=== PATIENT | male | born 1990 | race Caucasian/White ===

== ENCOUNTER 2017-01-11 15:03 | Emergency (ER) | payer OTHER ==
[2017-01-11 15:14] VITALS: RESP 18
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
[2017-01-11] MEDS ORDERED: LET GEL TOPICAL 1 EA SYR TP ONE (16:11)
[2017-01-11 16:18] VITALS: BP 134/67; PULSE 82; TEMP 98.2; O2SAT 96
== END 2017-01-11 16:41 | disposition home or self-care (01) ==
DX: S42.101A Fracture of unspecified part of scapula, right shoulder, initial encounter for closed fracture (principal); S50.311A Abrasion of right elbow, initial encounter; S70.211A Abrasion, right hip, initial encounter; V19.9XXA Pedal cyclist (driver) (passenger) injured in unspecified traffic accident, initial encounter; Y92.410 Unspecified street and highway as the place of occurrence of the external cause; Y93.55 Activity, bike riding
CPT/HCPCS: A4565